=== PATIENT | female | born 1980 | race Caucasian/White ===

== ENCOUNTER → 2023-07-10 08:00 | Outpatient (REF) | payer BC, SELFPAY | LOC: PNTC 08:00 | PROVIDERS: ATTENDING PHYSICIAN Obstetrics & Gynecology | DX: O09.519 Supervision of elderly primigravida, unspecified trimester (principal) | CPT/HCPCS: 76801; 76802; 76813; 76814 ==

== ENCOUNTER → 2023-07-10 09:42 | Outpatient (REF) | payer BC, SELFPAY | LOC: PNTC 09:42 | PROVIDERS: ATTENDING PHYSICIAN Obstetrics & Gynecology | DX: O09.529 Supervision of elderly multigravida, unspecified trimester (principal) | CPT/HCPCS: 36415 ==

== ENCOUNTER → 2023-07-31 13:26 | Outpatient (REF) | payer BC, SELFPAY | LOC: PNTC 13:26 | PROVIDERS: ATTENDING PHYSICIAN Obstetrics & Gynecology | DX: O09.529 Supervision of elderly multigravida, unspecified trimester (principal); O30.039 Twin pregnancy, monochorionic/diamniotic, unspecified trimester | CPT/HCPCS: 76805; 76810 ==

== ENCOUNTER → 2023-08-18 07:32 | Outpatient (REF) | payer BC, SELFPAY | LOC: PNTC 07:32 | PROVIDERS: ATTENDING PHYSICIAN Obstetrics & Gynecology | DX: O30.039 Twin pregnancy, monochorionic/diamniotic, unspecified trimester (principal); O09.529 Supervision of elderly multigravida, unspecified trimester | CPT/HCPCS: 76815; 76820; 76821 ==

== ENCOUNTER → 2023-09-01 08:21 | Outpatient (REF) | payer BC, SELFPAY | LOC: PNTC 08:21 | PROVIDERS: ATTENDING PHYSICIAN Obstetrics & Gynecology | DX: O09.519 Supervision of elderly primigravida, unspecified trimester (principal); O30.039 Twin pregnancy, monochorionic/diamniotic, unspecified trimester | CPT/HCPCS: 76811; 76812; 76820; 76821 ==

== ENCOUNTER → 2023-09-15 07:33 | Outpatient (REF) | payer BC, SELFPAY | LOC: PNTC 07:33 | PROVIDERS: ATTENDING PHYSICIAN Obstetrics & Gynecology | DX: O30.039 Twin pregnancy, monochorionic/diamniotic, unspecified trimester (principal) | CPT/HCPCS: 76815; 76820; 76821 ==

== ENCOUNTER → 2023-09-29 07:36 | Outpatient (REF) | payer BC, SELFPAY | LOC: PNTC 07:36 | PROVIDERS: ATTENDING PHYSICIAN Obstetrics & Gynecology | DX: O30.039 Twin pregnancy, monochorionic/diamniotic, unspecified trimester (principal) | CPT/HCPCS: 76816; 76820; 76821 ==

== ENCOUNTER → 2023-10-20 13:05 | Outpatient (REF) | payer BC, SELFPAY | LOC: PNTC 13:05 | PROVIDERS: ATTENDING PHYSICIAN Obstetrics & Gynecology | DX: O30.039 Twin pregnancy, monochorionic/diamniotic, unspecified trimester (principal) | CPT/HCPCS: 76815; 76820; 76821 ==

== ENCOUNTER → 2023-11-03 07:42 | Outpatient (REF) | payer BC, SELFPAY | LOC: PNTC 07:42 | PROVIDERS: ATTENDING PHYSICIAN Obstetrics & Gynecology | DX: O30.039 Twin pregnancy, monochorionic/diamniotic, unspecified trimester (principal) | CPT/HCPCS: 76816; 76820; 76821 ==

== ENCOUNTER → 2023-11-17 07:58 | Outpatient (REF) | payer BC, SELFPAY | LOC: PNTC 07:58 | PROVIDERS: ATTENDING PHYSICIAN Obstetrics & Gynecology | DX: O30.039 Twin pregnancy, monochorionic/diamniotic, unspecified trimester (principal) | CPT/HCPCS: 59025; 76815; 76820; 76821 ==

== ENCOUNTER → 2023-11-24 07:34 | Outpatient (REF) | payer BC, SELFPAY | LOC: PNTC 07:34 | PROVIDERS: ATTENDING PHYSICIAN Obstetrics & Gynecology | DX: O30.039 Twin pregnancy, monochorionic/diamniotic, unspecified trimester (principal) | CPT/HCPCS: 59025; 76815 ==

== ENCOUNTER → 2023-12-01 07:49 | Outpatient (REF) | payer BC, SELFPAY | LOC: PNTC 07:49 | PROVIDERS: ATTENDING PHYSICIAN Obstetrics & Gynecology | DX: O30.039 Twin pregnancy, monochorionic/diamniotic, unspecified trimester (principal) | CPT/HCPCS: 59025; 76816; 76820; 76821 ==

== ENCOUNTER → 2023-12-08 07:43 | Outpatient (REF) | payer BC, SELFPAY | LOC: PNTC 07:43 | PROVIDERS: ATTENDING PHYSICIAN Obstetrics & Gynecology | DX: O30.039 Twin pregnancy, monochorionic/diamniotic, unspecified trimester (principal) | CPT/HCPCS: 59025; 76815 ==

== ENCOUNTER → 2023-12-15 08:04 | Outpatient (REF) | payer BC, SELFPAY | LOC: PNTC 08:04 | PROVIDERS: ATTENDING PHYSICIAN Obstetrics & Gynecology | DX: O30.039 Twin pregnancy, monochorionic/diamniotic, unspecified trimester (principal); O09.521 Supervision of elderly multigravida, first trimester | CPT/HCPCS: 59025; 76815; 76820; 76821 ==

== ENCOUNTER → 2023-12-22 13:07 | Outpatient (REF) | payer BC, SELFPAY | LOC: PNTC 13:07 | PROVIDERS: ATTENDING PHYSICIAN Obstetrics & Gynecology | DX: O30.039 Twin pregnancy, monochorionic/diamniotic, unspecified trimester (principal) | CPT/HCPCS: 59025; 76816 ==

== ENCOUNTER 2023-12-29 07:43 | Inpatient (IN) | payer BC, SELFPAY ==
[2023-12-29] MEDS: LR 1000 IV ×3 (08:00→21:19)
[2023-12-29 08:46] VITALS: BP 147/96; BMI 23.5
[2023-12-29 08:52] LABS: % Basophils 0.9 % (0-2); % Eosinophils 1.2 % (0-6); % Immature Granulocytes 1.4 % (0-0.5); % Lymphocytes 30.9 % (20.5-51.1); % Monocytes 10.5 % (1.7-9.3); % Neutrophils 55.1 % (42.2-75.2); Absolute Basophils 0.1 10^3/uL (0-0.2); Absolute Eosinophils 0.1 10^3/uL (0-0.7); Absolute Immature Granulocytes 0.1 10^3/uL (0-0.05); Absolute Lymphocytes 2.4 10^3/uL (1.2-3.4); Absolute Monocytes 0.8 10^3/uL (0.1-0.6); Absolute Neutrophils 4.3 10^3/uL (1.4-6.5); Hematocrit 32.1 % (37.0-47.0); Mean Corp Hgb Conc. 34.3 g/dL (33.0-37.0); Mean Corpuscular Hgb 31.4 pg (27.0-31.0); Mean Corpuscular Volume 91.7 fL (81.0-99.0); Mean Platelet Volume 11.6 fL (7.4-10.4); Nucleated Red Blood Cells % 0 %; Platelet Count 176 10^3/uL (130-400); Red Cell Dist. Width 12.5 % (11.5-14.5); White Blood Cell Count 7.8 10^3/uL (4.8-10.8)
[2023-12-29 09:05] LABS: ALT (SGPT) 16 U/L (0-35); AST (SGOT) 27 U/L (14-36); Albumin 3.1 g/dl (3.5-5.0); Alkaline Phosphatase 165 U/L (38-126); Blood Urea Nitrogen 14 mg/dl (7-17); Calcium 8.4 mg/dl (8.4-10.2); Carbon Dioxide 21 mmol/L (22-30); Chloride 107 mmol/L (98-107); Estimated Creatinine Clearance 94 ml/min; Glucose 79 mg/dl (70-99); Potassium 4.4 mmol/L (3.5-5.1); Sodium 136 mmol/L (135-145); Total Bilirubin 0.6 mg/dl (0.2-1.3); Total Protein 5.8 g/dl (6.3-8.2); eGFR > 60.00
[2023-12-29] MEDS: SUBLIMAZE 100 MCG EPIDURAL (09:07)
[2023-12-29] MEDS: FENTANYL/BUPIVACAINE 100 EPIDURAL (09:07)
[2023-12-29] MEDS: ZITHROMAX INFUSION 250 IV (11:00)
[2023-12-29 11:27] LABS: Cord ABG Comment CORD BLOOD
[2023-12-29 11:31] LABS: B.E. Cord ABG -5.3 mMOL/L; O2 Saturation % Cord ABG 29.7 %; PCO2 Cord ABG 60 mmHg; PO2 Cord ABG 15 mmHg; pH Cord ABG 7.21
[2023-12-29 11:36] LABS: B.E. Cord ABG -5.9 mMOL/L; HCO3 Cord ABG 23.7 mmol/L; PCO2 Cord ABG 65 mmHg; PO2 Cord ABG 22 mmHg; pH Cord ABG 7.17
[2023-12-29] MEDS: MORPHINE SULFATE 2 MG IV (15:25)
[2023-12-29 16:15] LABS: Hematocrit 26.3 % (37.0-47.0); Hemoglobin 9.1 g/dL (12.0-16.0); Mean Corp Hgb Conc. 34.6 g/dL (33.0-37.0); Mean Corpuscular Hgb 31.2 pg (27.0-31.0); Mean Corpuscular Volume 90.1 fL (81.0-99.0); Mean Platelet Volume 11.3 fL (7.4-10.4); Platelet Count 187 10^3/uL (130-400); Red Blood Cell Count 2.92 10^6/uL (4.20-5.40); Red Cell Dist. Width 12.4 % (11.5-14.5); White Blood Cell Count 21.8 10^3/uL (4.8-10.8)
[2023-12-29 16:31] LABS: INR 1.05
[2023-12-29 16:32] LABS: APTT 30.7 Sec (23.4-35.0)
[2023-12-29] MEDS: MORPHINE SULFATE 4 MG IV ×3 (17:54→23:58)
[2023-12-29 20:20] LABS: Hematocrit 24.7 % (37.0-47.0); Hemoglobin 8.4 g/dL (12.0-16.0); Mean Corpuscular Volume 91.1 fL (81.0-99.0); Mean Platelet Volume 11.4 fL (7.4-10.4); Platelet Count 166 10^3/uL (130-400); Red Blood Cell Count 2.71 10^6/uL (4.20-5.40); Red Cell Dist. Width 12.4 % (11.5-14.5); White Blood Cell Count 21.7 10^3/uL (4.8-10.8)
[2023-12-30 00:36] LABS: Hematocrit 22.4 % (37.0-47.0); Hemoglobin 7.8 g/dL (12.0-16.0); Mean Corp Hgb Conc. 34.8 g/dL (33.0-37.0); Mean Corpuscular Hgb 31.8 pg (27.0-31.0); Mean Corpuscular Volume 91.4 fL (81.0-99.0); Mean Platelet Volume 11.9 fL (7.4-10.4); Platelet Count 163 10^3/uL (130-400); Red Blood Cell Count 2.45 10^6/uL (4.20-5.40); Red Cell Dist. Width 12.3 % (11.5-14.5); White Blood Cell Count 22.5 10^3/uL (4.8-10.8)
[2023-12-30] MEDS: MORPHINE SULFATE 4 MG IV (04:07)
[2023-12-30] MEDS: LR 1000 IV (04:57)
[2023-12-30 06:54] LABS: Hematocrit 21.3 % (37.0-47.0); Hemoglobin 7.2 g/dL (12.0-16.0); Mean Corp Hgb Conc. 33.8 g/dL (33.0-37.0); Mean Corpuscular Hgb 30.9 pg (27.0-31.0); Mean Corpuscular Volume 91.4 fL (81.0-99.0); Mean Platelet Volume 11.7 fL (7.4-10.4); Platelet Count 161 10^3/uL (130-400); Red Blood Cell Count 2.33 10^6/uL (4.20-5.40); Red Cell Dist. Width 12.4 % (11.5-14.5); White Blood Cell Count 21.4 10^3/uL (4.8-10.8)
[2023-12-30 07:01] LABS: ALT (SGPT) 18 U/L (0-35); AST (SGOT) 40 U/L (14-36); Alkaline Phosphatase 115 U/L (38-126); Blood Urea Nitrogen 10 mg/dl (7-17); Carbon Dioxide 25 mmol/L (22-30); Chloride 100 mmol/L (98-107); Estimated Creatinine Clearance 94 ml/min; Glucose 68 mg/dl (70-99); Potassium 4.7 mmol/L (3.5-5.1); Sodium 127 mmol/L (135-145); Total Bilirubin 0.5 mg/dl (0.2-1.3); Total Protein 4.2 g/dl (6.3-8.2); eGFR > 60.00
[2023-12-30] MEDS: TYLENOL 650 MG PO ×3 (07:41→20:11)
[2023-12-30] MEDS: PRENATAL PLUS 1 TABLET PO (07:42)
[2023-12-30] MEDS: SENOKOT-S 1 TABLET PO ×2 (07:42→20:10)
[2023-12-30] MEDS: MOTRIN 600 MG PO ×3 (07:58→20:10)
[2023-12-30] MEDS: FEOSOL 325 MG PO (08:58)
--- NOTE | 2023-12-30 09:58 | W.PN.ANS.POP ---
Anesthesia Post Operative
- Anesthesia Post Op Note
Vital Signs Stable-See Nursing Note: Yes
Airway Patent: Yes
Adequate Pain Control: Yes
Change in Mental Status: No
Current Postoperative Nausea & Vomiting: No
Anesthesia Complications: No
General Anesthetic Recall: No
Unplanned Admission: No
Post Op Hydration Adequate: Yes
[2023-12-30 12:38] LABS: Syphilis/T. pallidum Ab Reflex Negative (Negative)
[2023-12-30] MEDS: MYLICON 80 MG PO (20:10)
[2023-12-31] VITALS (7 sets, daily range): BP systolic 124–135; BP diastolic 81–89
[2023-12-31] MEDS: MOTRIN 600 MG PO ×3 (03:56→15:43)
[2023-12-31] MEDS: TYLENOL 650 MG PO ×3 (03:56→15:43)
[2023-12-31] MEDS: SENOKOT-S 1 TABLET PO (08:48)
[2023-12-31] MEDS: MYLICON 80 MG PO ×2 (08:48→15:46)
[2023-12-31] MEDS: FEOSOL 325 MG PO (08:48)
[2023-12-31] MEDS: PRENATAL PLUS 1 TABLET PO (08:48)
[2023-12-31 15:52] LABS: Hematocrit 19.6 % (37.0-47.0); Hemoglobin 6.6 g/dL (12.0-16.0); Mean Corp Hgb Conc. 33.7 g/dL (33.0-37.0); Mean Corpuscular Hgb 31.3 pg (27.0-31.0); Mean Corpuscular Volume 92.9 fL (81.0-99.0); Mean Platelet Volume 10.6 fL (7.4-10.4); Platelet Count 219 10^3/uL (130-400); Red Blood Cell Count 2.11 10^6/uL (4.20-5.40); Red Cell Dist. Width 12.6 % (11.5-14.5); White Blood Cell Count 14.8 10^3/uL (4.8-10.8)
[2023-12-31] MEDS: BENADRYL 50 MG PO (17:35)
[2024-01-01 01:17] LABS: Hematocrit 22.5 % (37.0-47.0); Mean Corp Hgb Conc. 35.6 g/dL (33.0-37.0); Mean Platelet Volume 10.8 fL (7.4-10.4); Platelet Count 187 10^3/uL (130-400); Red Cell Dist. Width 13.8 % (11.5-14.5); White Blood Cell Count 15.4 10^3/uL (4.8-10.8)
[2024-01-01] MEDS: TYLENOL 650 MG PO (06:10)
[2024-01-01] MEDS: MOTRIN 600 MG PO (06:10)
[2024-01-01] MEDS: PRENATAL PLUS 1 TABLET PO ×2 (08:55)
[2024-01-01] MEDS: MYLICON 80 MG PO (08:55)
[2024-01-01] MEDS: FEOSOL 325 MG PO (08:55)
--- NOTE | 2024-01-01 14:08 | W.DS.TRANS ---
DC Summary - [employer]
-
Discharge Instructions:
Discharge Diagnosis/Procedures vaginal and deliveries
Instructions:
Stand-Alone Forms: LDRP Delivery
LDRP Vaginal Delivery
Changes to Home Medications: No
Discharge Medications:
DC Medications w/original date entered in [employer]
vitamin-ferrous fumarate 28 mg iron-folic acid 800 mcg tablet 1 ea PO DAILY Supplement 01/12/21
Vitamin D2 1 tab PO DAILY Supplement 12/29/23
acetaminophen 325 mg tablet 650 mg (2 x 325 mg) PO Q4HPRN PRN mild pain #0 tabs 01/01/24
calcium carbonate (Calcium Antacid) 400 mg (2 x 200 mg calcium (500 mg)) PO Q6HPRN PRN indigestion #0 tabs 01/01/24
ferrous sulfate 325 mg (65 mg iron) tablet (FeroSul) 325 mg PO DAILY #0 tabs 01/01/24
ibuprofen 600 mg tablet 600 mg PO Q6HPRN PRN cramps #40 tabs 01/01/24
sennosides 8.6 mg-docusate sodium 50 mg tablet 1 tab PO DAILYPRN PRN constipation #0 tabs 01/01/24
simethicone 80 mg chewable tablet 80 mg PO TIDPRN PRN flatulence #0 tabs 01/01/24
Home Medication Changes
Pending Results: No
Total time spent discharging patient (in min): 20
== END 2024-01-01 12:32 | disposition home or self-care (01) | DRG 787 ==
LOC: LDRP 07:43
PROVIDERS: Student in an Organized Health Care Education/Training Program; ADMITTING PHYSICIAN Obstetrics & Gynecology; FAMILY PHYSICIAN Internal Medicine
PROC: 10907ZC Drainage of Amniotic Fluid, Therapeutic from Products of Conception, Via Natural or Artificial Opening (ICD-10-PCS; 2023-12-29)
PROC: 10D00Z1 Extraction of Products of Conception, Low, Open Approach (ICD-10-PCS; 2023-12-29)
PROC: 10E0XZZ Delivery of Products of Conception, External Approach (ICD-10-PCS; 2023-12-29)
PROC: 4A1HXCZ Monitoring of Products of Conception, Cardiac Rate, External Approach (ICD-10-PCS; 2023-12-29)
PROC: 30233N1 Transfusion of Nonautologous Red Blood Cells into Peripheral Vein, Percutaneous Approach (ICD-10-PCS; 2023-12-31)
PROC: 3E0234Z Introduction of Serum, Toxoid and Vaccine into Muscle, Percutaneous Approach (ICD-10-PCS; 2024-01-01)
DX: O36.5931 Maternal care for other known or suspected poor fetal growth, third trimester, fetus 1 (principal); D62 Acute posthemorrhagic anemia; Z37.2 Twins, both liveborn; O30.033 Twin pregnancy, monochorionic/diamniotic, third trimester; O62.2 Other uterine inertia; O76 Abnormality in fetal heart rate and rhythm complicating labor and delivery; Z3A.37 37 weeks gestation of pregnancy; O69.81X2 Labor and delivery complicated by cord around neck, without compression, fetus 2; O69 Labor and delivery complicated by umbilical cord complications; O90.2 Hematoma of obstetric wound; O69.3XX1 Labor and delivery complicated by short cord, fetus 1; O90.81 Anemia of the puerperium; Z23 Encounter for immunization
CPT/HCPCS: 88307; 36415; 76856; 80053; 82803; 85025; 85027; 85610; 85730; 86780; 86850; 86900; 86901; 86920; P9016

== ENCOUNTER → 2024-01-15 12:22 | Outpatient (REF) | payer BC, SELFPAY | LOC: WOUND 12:22 | PROVIDERS: ATTENDING PHYSICIAN Surgery; FAMILY PHYSICIAN Internal Medicine | DX: T81.31XA Disruption of external operation (surgical) wound, not elsewhere classified, initial encounter (principal); S31.109A Unspecified open wound of abdominal wall, unspecified quadrant without penetration into peritoneal cavity, initial encounter; S30.1XXA Contusion of abdominal wall, initial encounter; Y83.8 Other surgical procedures as the cause of abnormal reaction of the patient, or of later complication, without mention of misadventure at the time of the procedure | CPT/HCPCS: 11042; 99213 ==

== ENCOUNTER → 2024-01-22 10:50 | Outpatient (REF) | payer BC, SELFPAY | LOC: WOUND 10:50 | PROVIDERS: ATTENDING PHYSICIAN Surgery; FAMILY PHYSICIAN Internal Medicine | DX: T81.31XA Disruption of external operation (surgical) wound, not elsewhere classified, initial encounter (principal); S31.109A Unspecified open wound of abdominal wall, unspecified quadrant without penetration into peritoneal cavity, initial encounter; S30.1XXA Contusion of abdominal wall, initial encounter; Y83.8 Other surgical procedures as the cause of abnormal reaction of the patient, or of later complication, without mention of misadventure at the time of the procedure | CPT/HCPCS: 17250; 99213 ==

== ENCOUNTER → 2024-01-29 13:36 | Outpatient (REF) | payer BC, SELFPAY | LOC: WOUND 13:36 | PROVIDERS: ATTENDING PHYSICIAN Surgery; FAMILY PHYSICIAN Internal Medicine | DX: T81.31XA Disruption of external operation (surgical) wound, not elsewhere classified, initial encounter (principal); Y83.8 Other surgical procedures as the cause of abnormal reaction of the patient, or of later complication, without mention of misadventure at the time of the procedure; S21.109A Unspecified open wound of unspecified front wall of thorax without penetration into thoracic cavity, initial encounter; X58.XXXA Exposure to other specified factors, initial encounter | CPT/HCPCS: 17250; 99213 ==

== ENCOUNTER → 2024-02-19 09:09 | Outpatient (REF) | payer BC, SELFPAY | LOC: WOUND 09:09 | PROVIDERS: ATTENDING PHYSICIAN Surgery; FAMILY PHYSICIAN Internal Medicine | DX: T81.31XA Disruption of external operation (surgical) wound, not elsewhere classified, initial encounter (principal); S31.109A Unspecified open wound of abdominal wall, unspecified quadrant without penetration into peritoneal cavity, initial encounter; Y83.8 Other surgical procedures as the cause of abnormal reaction of the patient, or of later complication, without mention of misadventure at the time of the procedure; X58.XXXA Exposure to other specified factors, initial encounter | CPT/HCPCS: 99212 ==